=== PATIENT | female | born 1985 | race African-American/Black ===

== ENCOUNTER 2023-12-16 12:58 | Emergency (ER) | payer MEDICAID ==
[~2023-12-16] VITALS: Ht 170.2 cm; Wt 77.0 kg
[2023-12-16 13:03] VITALS: O2SAT 100
[2023-12-16 13:59] LABS: HCG SCREEN NEGATIVE
[2023-12-16] MEDS: SODIUM CHLORIDE 0.9% 1,000 ML IV ONE ×2 (14:00→17:53)
[2023-12-16 14:02] LABS: CHLORIDE 102 mEq/L (98-107); POTASSIUM 4.2 mEq/L (3.5-5.1); SODIUM 136 mEq/L (136-145)
[2023-12-16 14:03] LABS: CARBON DIOXIDE 20 mEq/L (21-32)
[2023-12-16 14:03] LABS: HEMATOCRIT. 38.3 % (36.0-48.0); HEMOGLOBIN. 12.6 g/dL (12.0-16.0); MEAN CORPUSCULAR HGB CONC 32.9 g/dL (31.0-37.0); MEAN CORPUSCULAR VOLUME 85.1 fL (81.0-99.0); MEAN PLATELET VOLUME 7.8 fl (7.4-10.4); PLATELET 260 x1000/uL (130-400)
[2023-12-16 14:04] LABS: CALCIUM 8.1 mg/dL (8.7-10.4)
[2023-12-16 14:05] LABS: DIFFERENTIAL COMMENT 1
[2023-12-16 14:08] LABS: PROTHROMBIN TIME 10.9 sec (9.6-11.0)
[2023-12-16 14:09] LABS: ETHANOL BLOOD 246 mg/dL (<10); GLUCOSE 77 mg/dL (70-105); UREA NITROGEN BLOOD 7 mg/dL (9-23)
[2023-12-16 14:12] LABS: TROPONIN I HIGH SENSITIVITY < 4 ng/L (3.0-34)
[2023-12-16 15:41] LABS: PLATELET ESTIMATE NORMAL
[2023-12-16 15:42] LABS: SMUDGE CELLS FEW
[2023-12-16 16:03] LABS: TROPONIN I HIGH SENSITIVITY 6 ng/L (3.0-34)
[2023-12-16 16:21] LABS: LACTIC ACID 5.1 mmol/L (0.4-2.0)
[2023-12-16] MEDS: DEXT 5%/0.9% NACL 1,000 ML IV ONE (19:18)
[2023-12-16 20:00] VITALS: TEMP 36.94740
[2023-12-16 22:01] LABS: LACTIC ACID 3.2 mmol/L (0.4-2.0)
[2023-12-17] VITALS: BP 147/97; PULSE 98; RESP 19; O2SAT 98
== END 2023-12-17 | disposition home or self-care (01) ==
LOC: ER 12:58
DX: S00.03XA Contusion of scalp, initial encounter (principal); R55 Syncope and collapse; X58.XXXA Exposure to other specified factors, initial encounter; Y93.89 Activity, other specified; Y92.89 Other specified places as the place of occurrence of the external cause; Y99.8 Other external cause status
CPT/HCPCS: 80048; 80320; 84703; 83880; 83605; 85025; 85610; 86850; 86900; 86901; 84484; 36415; 71045; 70450; 93005; 96360; 96361; 99285; J7042; J7030; Z7610 ×2; G0480